=== PATIENT | female | born 1945 | race Caucasian/White ===

== ENCOUNTER 2016-12-01 09:51 | Inpatient (IN) | payer OTHER ==
[~2016-12-01] VITALS: Ht 172.7 cm; Wt 71.7 kg
[~2016-12-01 09:51] MED LIST: BACL10TA PO; CIPR-260 PO; DOCU-144 PO; DULO60CA41 PO; Elmiron PO; IBUP-1969 PO; LEVO500T20 PO; MORP30CA17 PO; PHEN-727 PO; SACC250C3 PO
[2016-12-01 09:59] VITALS: BP 156/108; PULSE 97; RESP 19; TEMP 97.5; O2SAT 88
--- NOTE | 2016-12-01 10:04 | NUR ---
Placed in room 03. Placed on environmental monitoring specialist, blood pressure machine and pulse oximeter. To gown for exam. Side rails up. Report given to JORGE Triplett.
--- NOTE | 2016-12-01 10:04 | NUR ---
Pt report received from JORGE Gautam. Pt AAOx4, even and non-labored respirations, BBS clear. Pt c/o generalized lower abdominal pain with nausea since yesterday. Pt appears jaundiced. Pt denies hx of liver problems. Family members at bedside.
--- NOTE | 2016-12-01 10:25 | NUR ---
# 20 gauge angiocath placed to RAC. Use of asceptic technique. Opsite placed over site. Blood return noted. Blood for lab drawn from site. Flushed with 10 cc of normal saline. No evidence of infiltration noted. Patient tolerated well.
[2016-12-01] MEDS ORDERED: PIPERACILLIN/TAZO 3.38 GM in NS 50 ML IV ONE (10:45)
[2016-12-01 11:00] LABS: BASOPHILS % (AUTO) 0.3 % (0.0-2.0); EOSINOPHILS % (AUTO) 0.1 % (0.0-4.0); HEMATOCRIT 32.8 % (36-48); HEMOGLOBIN 11.2 g/dL (12.0-16.0); LYMPHOCYTES # (AUTO) 0.9 K/uL (1.0-5.5); LYMPHOCYTES % (AUTO) 9.9 % (20.5-51.5); MEAN CORPUSCULAR HEMOGLOBIN 30 pg (27-31); MEAN CORPUSCULAR HGB CONC 34 % (32-36); MEAN CORPUSCULAR VOLUME 88 fL (79.0-98.0); MONOCYTES # (AUTO) 0.6 K/uL (0.0-1.0); MONOCYTES % (AUTO) 7.4 % (1.7-9.3); NEUTROPHILS # (AUTO) 7.2 K/uL (1.8-7.7); NEUTROPHILS % (AUTO) 82.3 % (40.0-70.0); PLATELET COUNT (AUTO) 283 K/uL (130-430); RED BLOOD CELL COUNT(AUTO) 3.75 MIL/uL (4.2-6.2); RED CELL DISTRIBUTION WIDTH 15.6 % (9.0-15.0); WHITE BLOOD COUNT (AUTO) 8.7 K/uL (4.8-10.8)
[2016-12-01 11:05] LABS: ANION GAP 12 (5-15); CALCIUM 9.2 mg/dL (8.4-11.0); CHLORIDE 95 mmol/L (98-107); CREATININE 4.55 mg/dL (0.55-1.30); GLUCOSE 144 mg/dL (70-99); POTASSIUM 3.3 mmol/L (3.5-5.1); SODIUM SERUM 130 mmol/L (136-145); UREA NITROGEN, BLOOD 30 mg/dL (8-21)
[2016-12-01 11:08] LABS: PROTHROMBIN TIME 10.9 SECS (9.5-12.5)
[2016-12-01 11:09] LABS: ALANINE AMINOTRANSFERASE 35 U/L (12-78); ALBUMIN 4.6 g/dL (3.4-4.8); ASPARTATE AMINOTRANSFERASE 35 U/L (10-37); LIPASE 184 U/L (73-393); TOTAL BILIRUBIN 2.4 mg/dL (0.0-1.0); TOTAL PROTEIN, SERUM 8.2 g/dL (6.4-8.3)
[2016-12-01] MEDS ORDERED: PIPERACILLIN/TAZOBACTAM 3.375 GM/VIAL (ZOSYN) IV ONE (11:36)
[2016-12-01] MEDS ORDERED: POTASSIUM CHLORIDE 20 MEQ TAB.PRT.SR PO ONE (12:15)
--- NOTE | 2016-12-01 12:45 | NUR ---
Pt requests pain medication. Dr. Curran notified.
[2016-12-01 12:53] LABS: BILIRUBIN,URINE 2+ (NEGATIVE); CLARITY/URINE CLEAR (CLEAR); COLOR,URINE BROWN (YELLOW); GLUCOSE,URINE 1+ (NEGATIVE); KETONES,URINE 1+ (NEGATIVE); LEUKOCYTE ESTERASE ,URINE 1+ (NEGATIVE); NITRITE, URINE POSITIVE (NEGATIVE); PROTEIN URINE 3+ (NEGATIVE)
[2016-12-01 12:58] LABS: BLOOD, URINE TRACE (NEGATIVE); UROBILINOGEN,URINE >=8 (0.2-1.0)
[2016-12-01] MEDS ORDERED: IBUPROFEN 600 MG TABLET PO ONE (13:00)
[2016-12-01] MEDS ORDERED: PHENAZOPYRIDINE HCL 100 MG TABLET PO ONE (13:00)
[2016-12-01] MEDS ORDERED: AMOXICILLIN/CLAVULANATE POTASSIUM 875 MG TABLET PO ONE (13:15)
[2016-12-01 13:24] LABS: BACTERIA,URINE FEW /HPF (None Seen); MUCUS,URINE None Seen /LPF (None Seen); RBC,URINE 0-3 /HPF (0-3); WBC,URINE 0-3 /HPF (0-3)
--- NOTE | 2016-12-01 14:00 | NUR ---
Patient will be admitted to care of Dr. Fishman. Admitted to Med/Surg unit. Will go to room 101A. Belongings list completed. Summary report printed. Bedside report given to receiving RN.
--- NOTE | 2016-12-01 14:05 | NUR ---
ADMISSION NOTE Received patient from ER via marquita, received report from ANDREW PATEL. Patient admitted with diagnosis of ACUTE RENAL FAilure. Patient oriented to hospital routine, call light, toileting and safety-patient verbalized understanding.
[2016-12-01 14:20] VITALS: BP 148/91; PULSE 79; RESP 18; TEMP 97.8; O2SAT 90
[2016-12-01] MEDS ORDERED: BUPR-120 PO (14:29)
[2016-12-01] MEDS ORDERED: PHEN-726 PO (14:29)
[2016-12-01] MEDS ORDERED: CYM30 PO (14:29)
[2016-12-01] MEDS ORDERED: PREG75CA PO (14:29)
[2016-12-01] MEDS: NACL 0.9% 1,000 ML IV SCH (14:45)
[2016-12-01] MEDS ORDERED: MAGNESIUM SULFATE 50 ML IV PRN (15:15)
[2016-12-01] MEDS ORDERED: ZOLPIDEM TARTRATE 5 MG TABLET PO PRN (15:15)
[2016-12-01] MEDS ORDERED: BACLOFEN 10 MG TABLET PO PRN (15:15)
[2016-12-01] MEDS ORDERED: LORazepam 2 MG/ML VIAL IVP PRN (15:15)
[2016-12-01] MEDS ORDERED: ACETAMINOPHEN 325 MG TABLET PO PRN (15:15)
[2016-12-01] MEDS ORDERED: POTASSIUM CHLORIDE 10 MEQ TAB.PRT.SR PO PRN (15:15)
[2016-12-01] MEDS ORDERED: DOCUSATE SODIUM 100 MG CAPSULE PO PRN (15:15)
[2016-12-01] MEDS: cefTRIAXone 1 GM in D5W 50 ML IV SCH (15:56)
[2016-12-01] MEDS: MORPHINE 2 MG/ML INJ. SYRINGE IVP PRN ×2 (15:56→22:21)
--- NOTE | 2016-12-01 15:56 | NUR ---
PT COMPLAINED OF BLADDER PAIN, ADMINISTERED PRN PAIN MEDICATION, PT STATES IT IS EFFECTIVE UPON REASSESSMENT
[2016-12-01] MEDS: ONDANSETRON HCL 4 MG/2 ML VIAL IVP PRN (17:04)
--- NOTE | 2016-12-01 17:13 | NUR ---
PATIENT COMPLAINED OF NAUSEA, ADMINISTERED PRN ZOFRAN. PT TOLERATED WELL, WILL REASSESS.
--- NOTE | 2016-12-01 19:00 | NUR ---
closing note pt laying in bed,resting, easy to arouse, no s/s of distress or complaint of pain at this time, iv fliuds infusing to rac, patent no s/sof infiltration noted, vss, needs attended to through out shift, safety measures in place, call light within reach, will give report to following shift
[2016-12-01 20:00] VITALS: BP 140/77; PULSE 77; RESP 18; TEMP 97.1; O2SAT 88
--- NOTE | 2016-12-01 20:02 | NUR ---
BEGINNING OF FRONT END ENGINEER NOTE Patient in bed resting. She complains of some bladder pain and asked the nurse to check if the pain med is due. No other distress noted, no respiratory problems. Patient alert, oriented X4, on IVF and room air. Report received from the day shift RN.
[2016-12-01] MEDS ORDERED: DOCUSATE SODIUM 100 MG CAPSULE PO SCH (21:00)
[2016-12-01] MEDS: buPROPion HCL 150 MG XL TAB PO SCH (21:30)
[2016-12-01] MEDS: HEPARIN SODIUM,PORCINE 5000 UNITS/ML VIAL SUBCUT SCH (21:31)
--- NOTE | 2016-12-01 22:10 | NUR ---
2210 NOTE Patient in bed resting. She stated she is in pain 8/10 and she would like pain medication. The nurse provided the pain medication Morphine 2 mg IV push. Patient on IVF NS 0.9 % at 80cc/hr. Patient alert & oriented X4. No S/S of any other distress noted. Fall precautions in place, call light within reach. The nurse provided a warm blanket on patient's request.
[2016-12-01 23:31] VITALS: BP 129/81; PULSE 80; RESP 18; TEMP 97.4; O2SAT 93
--- NOTE | 2016-12-02 00:40 | NUR ---
0040 NOTE Patient in bed sleeping. No S/S of pain or any other distress noted. Call light within reach, bed in low position.
--- NOTE | 2016-12-02 01:00 | NUR ---
Assumed care Recvd pt in bed a/a/ox4.No c/o pain and no sob noted @ this time.Pt is ambulatory with supervision.Call light within reach,will cont to monitor.
--- NOTE | 2016-12-02 02:11 | NUR ---
0211 NOTE PAtient in bed sleeping, No S/S of pain or any distress noted. Bed in low position, call light within reach. Per management, there will be a change in staff and nurse is sent home. The nurse gave report to the replacing RN Mook.
[2016-12-02] MEDS: NACL 0.9% 1,000 ML IV SCH ×2 (02:33→14:58)
[2016-12-02] MEDS: MORPHINE 2 MG/ML INJ. SYRINGE IVP PRN (03:21)
--- NOTE | 2016-12-02 03:30 | NUR ---
ADMIN MORPHINE FOR 8/10 ABD PAIN. ADMIN MORPHINE FOR 8/10 ABD PAIN. WILL REASSESS AFTER 1 HOUR
[2016-12-02 03:55] VITALS: BP 142/90; PULSE 75; RESP 16; TEMP 97.4; O2SAT 91
--- NOTE | 2016-12-02 05:30 | NUR ---
ROUNDS PT IS SLEEPING @ THIS TIME.NO S/S OF PAIN AND NO DISTRESS NOTED.CALL LIGHT WITHIN REACH,WILL CONT TO MONITOR
[2016-12-02 06:54] LABS: BASOPHILS % (AUTO) 0.3 % (0.0-2.0); EOSINOPHILS # (AUTO) 0.1 K/uL (0.0-0.4); EOSINOPHILS % (AUTO) 1.4 % (0.0-4.0); HEMATOCRIT 26.5 % (36-48); HEMOGLOBIN 8.9 g/dL (12.0-16.0); LYMPHOCYTES # (AUTO) 0.9 K/uL (1.0-5.5); LYMPHOCYTES % (AUTO) 16.6 % (20.5-51.5); MEAN CORPUSCULAR HEMOGLOBIN 30 pg (27-31); MEAN CORPUSCULAR HGB CONC 33 % (32-36); MEAN CORPUSCULAR VOLUME 89 fL (79.0-98.0); MONOCYTES # (AUTO) 0.5 K/uL (0.0-1.0); MONOCYTES % (AUTO) 8.6 % (1.7-9.3); NEUTROPHILS % (AUTO) 73.1 % (40.0-70.0); PLATELET COUNT (AUTO) 247 K/uL (130-430); RED BLOOD CELL COUNT(AUTO) 2.98 MIL/uL (4.2-6.2); RED CELL DISTRIBUTION WIDTH 15.6 % (9.0-15.0); WHITE BLOOD COUNT (AUTO) 5.5 K/uL (4.8-10.8)
--- NOTE | 2016-12-02 06:59 | NUR ---
FINAL NOTES PT IS SLEEPING @ THIS TIME.NO S/S OF PAIN AND NO SOB NOTED.V/S ARE WNL.ALL NEEDS MET AND ANTICIPATED BY NOC NURSES.CALL LIGHT WITHIN REACH,ENDORSED.
--- NOTE | 2016-12-02 07:05 | NUR ---
NRSG: PATIENT AWAKE,ALERT AND ORIENTED X 4. RESPIRATION EVEN AND UNLABORED. ABDOMEN SOFT WITH BOWEL SOUNDS X 4 QUADRANTS. ON ROOM AIR AND O2 SAT. 94%. HAD IV ON THE RIGHT ANTECUBITAL INTACT AND INPLACED ,NO S/S OF INFILTRATION AND IVF ON PROGRESS , NO C/O OF PAIN ANF AMBULATED TO TOILET ,GAIT STEADY AND CALL LIGHT WITHIN REACH. NO SKIN BREAKDOWN. INSTRUCTED TO CALL IF IN NEEDS AND UNDERSTOOD.
[2016-12-02 07:06] LABS: ANION GAP 10 (5-15); CALCIUM 8.3 mg/dL (8.4-11.0); CHLORIDE 100 mmol/L (98-107); GLUCOSE 144 mg/dL (70-99); POTASSIUM 3.8 mmol/L (3.5-5.1); SODIUM SERUM 132 mmol/L (136-145); UREA NITROGEN, BLOOD 40 mg/dL (8-21)
[2016-12-02 08:00] VITALS: BP 142/77; PULSE 79; RESP 18; TEMP 96.9; O2SAT 94
[2016-12-02] MEDS: DULoxetine HCL 30 MG CAPSULE.DR (CYMBALTA) PO SCH (08:47)
[2016-12-02] MEDS: PREGABALIN 75 MG CAPSULE (LYRICA) PO SCH (08:47)
[2016-12-02] MEDS: buPROPion HCL 150 MG XL TAB PO SCH ×2 (08:48→21:09)
[2016-12-02] MEDS: HEPARIN SODIUM,PORCINE 5000 UNITS/ML VIAL SUBCUT SCH ×2 (08:49→21:11)
--- NOTE | 2016-12-02 09:00 | NUR ---
ROUNDS: SEEN AND EXAMINED BY DR. MORGAN WITH NEW ORDER AND TOLD DR. MORGAN C/O"I HAVE PAIN ON MY BLADDER".
--- NOTE | 2016-12-02 09:21 | NUR ---
Consult Order received for a consult with Dr Mukherjee for ESRD. Call was placed to the exchange, spoke with Ambreen. Dr Francie Morelos is salesperson men[employer] furnishings. Will follow up as needed.
--- NOTE | 2016-12-02 09:39 | NUR ---
ORDER: DR. MCCULLOUGH CALLED BACK FOR CONSULT WITH NEW ORDERS.
[2016-12-02 10:04] VITALS: Ht 172.7 cm; Wt 71.7 kg
--- NOTE | 2016-12-02 10:18 | NUR ---
VISITOR: FAMILY AT THE BEDSIDE. PATIENT WAS INSTRUCTED TO SAVE THE URINE TO BE SENT TO LAB.AND UNDERSTOOD.
[2016-12-02 11:42] VITALS: BP 127/72; PULSE 88; RESP 19; TEMP 97.8; O2SAT 90
--- NOTE | 2016-12-02 12:17 | NUR ---
ROUNDS: SEEN AND EXAMINED BY DR. MCCULLOUGH WITH NEW ORDERS.
--- NOTE | 2016-12-02 13:15 | NUR ---
RN rounds: pt on bed alert, awake and oriented. no distress noted. Discussed plan of care. family at bedside.
--- NOTE | 2016-12-02 14:25 | NUR ---
SPECIMEN: URINE SPECIMEN SENT TO LAB FOR RANDOM NA AND CHLORIDE. THE COLOR OF URINE IS ORANGE DUE TO MEDICINE SHE TOOK YESTERDAY PER PATIENT.
--- NOTE | 2016-12-02 15:12 | NUR ---
REINFORCE TEACHING: REINFORCED TEACHING REGARDING STRICT I AND O AND VERBALIZED UNDERSTANDING.
--- NOTE | 2016-12-02 16:30 | NUR ---
AMBULATION: AMBULATED TO HALLWAY,ACCOMPANIED BY ,GAIT STEADY AND BACK TO BED AFTER AND CALL LIGHT WITHIN REACH.
[2016-12-02] MEDS: cefTRIAXone 1 GM in D5W 50 ML IV SCH (16:34)
--- NOTE | 2016-12-02 18:37 | NUR ---
CLOSING: RESTING ON BED,AWAKE,ALERT AND ORIENTED, ST THE BEDSIDE.REMAINS ON IVF AND IV SITE INTACT AND INPLACED .NO SIGN OF INFILTRATION AND REMINDED REGARDING STRICT I AND O. CALL LIGHT WITHIN REACH.
[2016-12-02 19:40] VITALS: BP 131/80; PULSE 82; RESP 18; TEMP 98.2; O2SAT 91
--- NOTE | 2016-12-02 19:40 | NUR ---
INITIAL NOTE Patient resting on the bed comfortable. Respiration even and unlabored noted. Skin warm and dry to touch. IV intact to RAC, no redness, no swelling, no drainage. On NS at 80ml/hr, infusing well. at bedside. Discussed the safety issue, use call light when need help. strict I and O, and plan of care, verbally understanding. Bed in low position, side rails up, bed alarm on. Will continue to monitor.
--- NOTE | 2016-12-02 21:45 | NUR ---
ROUND Patient resting on the bed with eyes closed. No acute distress. No SOB. Safety measure maintained. Call light within reached. Bed in low position, side rails up, bed alarm on. Continue to monitor.
[2016-12-02 22:10] LABS: CHLORIDE,URINE RANDOM 19 mmol/L (55-125); URINE SODIUM, RANDOM 23 mmol/L (40-220)
--- NOTE | 2016-12-02 23:34 | NUR ---
ROUND Patient resting on the bed with eyes closed. Respiration even and unlabored. Call light within reached. Safety measure maintained. Bed alarm on, side rails up,bed in low position. Continue to monitor.
[2016-12-03] VITALS (7 sets, daily range): BP systolic 120–151; BP diastolic 73–88; PULSE 78–85; RESP 16–20; TEMP 97.1–98.5; O2SAT 91–94
--- NOTE | 2016-12-03 01:45 | NUR ---
ROUND Patient sleeping comfortable. No acute distress. Safety measure maintained. Call light within reached. Bed in low position, bed alarm on, side rails up. Continue to monitor.
--- NOTE | 2016-12-03 03:23 | NUR ---
ROUND Patient sleeping comfortable. Respiration even and unlabored. No acute distress. Safety measure maintained. Bed in low position, bed alarm on, side rails up. Call light within reached. Continue to monitor.
[2016-12-03] MEDS: NACL 0.9% 1,000 ML IV SCH ×2 (04:07→16:45)
[2016-12-03] MEDS: MORPHINE 2 MG/ML INJ. SYRINGE IVP PRN ×4 (04:13→20:34)
--- NOTE | 2016-12-03 04:13 | NUR ---
MORPHINE GIVEN Patient c/o lower abdomen pain 6/10 after assisted to ambulate to bathroom and brushed the teeth. Morphine 2mg IVP given as ordered. No acute distress. Safety measure maintained. Call light within reached. Education the possible side effect and use call light to call for help, verbally understanding. Continue to monitor.
--- NOTE | 2016-12-03 05:09 | NUR ---
ROUND Patient resting on the bed with eyes closed. No acute distress. No c/o pain at this time. Safety measure maintained. Bed alarm on, bed in low position, side rails up. Call light within reached. Continue to monitor.
--- NOTE | 2016-12-03 06:40 | NUR ---
CLOSING NOTE Patient resting on the bed comfortable. Respiration even and unlabored noted. IV intact to RAC, no redness, no swelling, no drainage. IVF infusing well. Assisted to ambulate to bathroom during shift. VS stable. All needs met. Hourly rounding during shift. Safety measure maintained. Bed in low position, side rails up, bed alarm on. Will endorse to morning shift nurse.
[2016-12-03 06:47] LABS: BASOPHILS % (AUTO) 0.3 % (0.0-2.0); EOSINOPHILS # (AUTO) 0.2 K/uL (0.0-0.4); EOSINOPHILS % (AUTO) 3.2 % (0.0-4.0); HEMATOCRIT 22.9 % (36-48); HEMOGLOBIN 7.5 g/dL (12.0-16.0); LYMPHOCYTES # (AUTO) 0.9 K/uL (1.0-5.5); LYMPHOCYTES % (AUTO) 16.9 % (20.5-51.5); MEAN CORPUSCULAR HEMOGLOBIN 30 pg (27-31); MEAN CORPUSCULAR HGB CONC 33 % (32-36); MEAN CORPUSCULAR VOLUME 90 fL (79.0-98.0); MONOCYTES # (AUTO) 0.5 K/uL (0.0-1.0); MONOCYTES % (AUTO) 10.7 % (1.7-9.3); NEUTROPHILS # (AUTO) 3.5 K/uL (1.8-7.7); NEUTROPHILS % (AUTO) 68.9 % (40.0-70.0); PLATELET COUNT (AUTO) 238 K/uL (130-430); RED BLOOD CELL COUNT(AUTO) 2.55 MIL/uL (4.2-6.2); RED CELL DISTRIBUTION WIDTH 17.1 % (9.0-15.0); WHITE BLOOD COUNT (AUTO) 5.1 K/uL (4.8-10.8)
[2016-12-03 07:09] LABS: ANION GAP 7 (5-15); CALCIUM 8.1 mg/dL (8.4-11.0); CHLORIDE 102 mmol/L (98-107); CREATINE KINASE, TOTAL 34 U/L (26-192); CREATININE 5.92 mg/dL (0.55-1.30); GLUCOSE 117 mg/dL (70-99); POTASSIUM 4.4 mmol/L (3.5-5.1); SODIUM SERUM 132 mmol/L (136-145); UREA NITROGEN, BLOOD 51 mg/dL (8-21); URIC ACID 4.9 mg/dL (2.4-7.0)
[2016-12-03 07:35] LABS: IRON (SERUM) 104 mcg/dL (37-145); TOTAL IRON BIND. CAPACITY 205 ug/dL (250-450)
--- NOTE | 2016-12-03 08:10 | NUR ---
INITIAL NOTES RECEIVED PATIENT ON BED AWAKE.BREATHING EVEN AND UNLABORED.NO ACUTE DISTRESS.WITH IVF INFUSING WELL;NO SIGNS AND SYMPTOMS OF INFILTRATION.SAFETY AND FALL PRECAUTIONS IN PLACE.CALL LIGHT WITHIN REACH
--- NOTE | 2016-12-03 08:30 | NUR ---
NOTES CHECKED PULSE OX=91-92% IN ROOM AIR;REFUSED OXYGEN STATED "I DON'T HAVE PROBLEM BREATHING.MY OXYGEN HAS ALWAYS BEEN LOW".EXPLAINED RISKS AND BENEFITS;STILL REFUSED
[2016-12-03] MEDS: DULoxetine HCL 30 MG CAPSULE.DR (CYMBALTA) PO SCH (08:46)
[2016-12-03] MEDS: buPROPion HCL 150 MG XL TAB PO SCH ×2 (08:46→21:24)
[2016-12-03] MEDS: HEPARIN SODIUM,PORCINE 5000 UNITS/ML VIAL SUBCUT SCH ×2 (08:48→21:27)
[2016-12-03] MEDS: PREGABALIN 75 MG CAPSULE (LYRICA) PO SCH (08:49)
--- NOTE | 2016-12-03 09:04 | NUR ---
NOTES DR. MORGAN CAME AND EXAMINED THE PATIENT;INFORMED REGARDING PATIENT'S HG=7.5 AND PATIENT'S REQUEST FOR MIRALAX BECAUSE IT IS WHAT SHE'S TAKING AT HOME SAID WILL ORDER;CARRIED OUT
[2016-12-03] MEDS ORDERED: BISACODYL 5 MG TABLET.DR (DULCOLAX) PO ONE (09:15)
--- NOTE | 2016-12-03 11:50 | NUR ---
NOTES PAGED DR. MORGAN REGARDING PATIENT'S COMPLAIN OF UPSET STOMACH;AWAITING FOR CALL BACK
--- NOTE | 2016-12-03 13:29 | NUR ---
NOTES CHARGE NURSE SPOKE WITH DR. MORGAN;WITH ORDER FOR REGLAN;CARRIED OUT
[2016-12-03] MEDS: METOCLOPRAMIDE HCL 10 MG/2 ML VIAL IVP PRN ×2 (14:15→20:38)
--- NOTE | 2016-12-03 16:00 | NUR ---
NOTES PATIENT ON BED ASLEEP WITH AT BEDSIDE.NO ACUTE DISTRESS
[2016-12-03] MEDS: cefTRIAXone 1 GM in D5W 50 ML IV SCH (16:46)
--- NOTE | 2016-12-03 17:40 | NUR ---
NOTES SPOKE WITH DR. MORGAN;INFORMED REGARDING PATIENT'S REQUEST TO CHANGE HER IV ANTIBIOTIC TO MACROBID BECAUSE ACCORDING TO PATIENT ITS WHAT WORKS FOR HER SAID HE CHANGED THE IV ANTIBIOTIC TO ORAL THEN HE WILL HAVE TO DISCHARGE HER AND THAT HE WILL TALK TO PATIENT TOMORROW.WILL INFORM PATIENT
--- NOTE | 2016-12-03 18:37 | NUR ---
CLOSING NOTES PATIENT ON BED AWAKE WATCHING T.V.BREATHING EVEN AND UNLABORED.NO ACUTE DISTRESS.IVF INFUSING WELL;NO SIGNS AND SYMPTOMS OF INFILTRATION.SAFETY AND FALL PRECAUTIONS IN PLACE.CALL LIGHT WITHIN REACH.WILL ENDORSE TO NEXT SHIFT ACCORDINGLY
--- NOTE | 2016-12-03 19:43 | NUR ---
notes received the pt from the day nurse.pt a/a/ox4 family at the bedside.iv to rt ac intact ,no redness or swelling noted.call light within reach ,safety measures in progress.continue to monitor.
--- NOTE | 2016-12-03 20:05 | NUR ---
notes dr crook here making rounds.
--- NOTE | 2016-12-03 20:30 | NUR ---
notes urine spec.sent to the lab.
--- NOTE | 2016-12-03 20:35 | NUR ---
notes c/o abdominal pain RN was notified.
--- NOTE | 2016-12-03 23:27 | NUR ---
notes pt sleeping,call light within reach,continue to monitor
[2016-12-04 00:09] VITALS: BP 138/82; PULSE 76; RESP 17; TEMP 98.6; O2SAT 95
--- NOTE | 2016-12-04 01:20 | NUR ---
notes pt remains asleep,call light within reach,continue to monitor.
--- NOTE | 2016-12-04 03:24 | NUR ---
notes nurse companion at the bedside getting vs,pt with no complaints.call light within reach.continue to monitor.
[2016-12-04 04:01] VITALS: BP 111/62; PULSE 74; RESP 16; TEMP 98.3; O2SAT 98
--- NOTE | 2016-12-04 05:27 | NUR ---
notes pt awake and alert ,watching tv with no complaints.
[2016-12-04] MEDS: NACL 0.9% 1,000 ML IV SCH ×2 (05:44→18:10)
[2016-12-04] MEDS: LEVOTHYROXINE SODIUM 0.075 MG TABLET PO SCH (06:03)
--- NOTE | 2016-12-04 06:09 | NUR ---
closing notes pt awake Synthroid given as ordered.pt returning to sleep.will endorse the care of the pt to the day nurse.
[2016-12-04 06:55] LABS: ANION GAP 7 (5-15); CALCIUM 8.3 mg/dL (8.4-11.0); CHLORIDE 103 mmol/L (98-107); CREATININE 5.81 mg/dL (0.55-1.30); GLUCOSE 109 mg/dL (70-99); POTASSIUM 4.1 mmol/L (3.5-5.1); SODIUM SERUM 132 mmol/L (136-145); UREA NITROGEN, BLOOD 54 mg/dL (8-21)
[2016-12-04 07:33] LABS: BASOPHILS % (AUTO) 0.5 % (0.0-2.0); EOSINOPHILS # (AUTO) 0.2 K/uL (0.0-0.4); EOSINOPHILS % (AUTO) 4.5 % (0.0-4.0); LYMPHOCYTES # (AUTO) 1.2 K/uL (1.0-5.5); LYMPHOCYTES % (AUTO) 22.5 % (20.5-51.5); MEAN CORPUSCULAR HEMOGLOBIN 30 pg (27-31); MEAN CORPUSCULAR HGB CONC 33 % (32-36); MEAN CORPUSCULAR VOLUME 90 fL (79.0-98.0); MONOCYTES # (AUTO) 0.5 K/uL (0.0-1.0); MONOCYTES % (AUTO) 9.1 % (1.7-9.3); NEUTROPHILS # (AUTO) 3.6 K/uL (1.8-7.7); NEUTROPHILS % (AUTO) 63.4 % (40.0-70.0); PLATELET COUNT (AUTO) 277 K/uL (130-430); RED BLOOD CELL COUNT(AUTO) 2.55 MIL/uL (4.2-6.2); RED CELL DISTRIBUTION WIDTH 17.2 % (9.0-15.0); WHITE BLOOD COUNT (AUTO) 5.5 K/uL (4.8-10.8)
[2016-12-04 07:34] LABS: HEMOGLOBIN 7.6 g/dL (12.0-16.0)
[2016-12-04 08:00] VITALS: BP 157/89; PULSE 89; RESP 18; TEMP 97; O2SAT 92
[2016-12-04] MEDS: PREGABALIN 75 MG CAPSULE (LYRICA) PO SCH (09:06)
[2016-12-04] MEDS: DULoxetine HCL 30 MG CAPSULE.DR (CYMBALTA) PO SCH (09:06)
[2016-12-04] MEDS: POLYETHYLENE GLYCOL 3350, 17 GM/ POWD.PACK PO SCH (09:06)
[2016-12-04] MEDS: buPROPion HCL 150 MG XL TAB PO SCH ×2 (09:06→20:46)
[2016-12-04] MEDS: HEPARIN SODIUM,PORCINE 5000 UNITS/ML VIAL SUBCUT SCH ×2 (09:13→20:49)
--- NOTE | 2016-12-04 09:19 | NUR ---
initial notes rec patient awake alert ambulating to the br. ivf infusing well on the r ac. no infiltration noted. denies pain at this time. bed in low position and side rails up and locked. call light within reached and knows when to call for assistance. will continue to monitor patient.
--- NOTE | 2016-12-04 09:24 | NUR ---
rounds dr henry was made aware of the h/h.
[2016-12-04] MEDS ORDERED: BISACODYL 5 MG TABLET.DR (DULCOLAX) PO ONE (09:30)
--- NOTE | 2016-12-04 10:06 | NUR ---
CONSULTATION: REASON FOR CONSULT: POSS GI BLEED CONSULTING PHYSICIAN: HALEY MCNALLY MD ORDERED BY: GAMALIEL MORGAN DO SPOKE WITH DEXTER
--- NOTE | 2016-12-04 10:30 | NUR ---
spoke with dr palacios and updated re patient and stated will be here later to see patient.
[2016-12-04 12:00] VITALS: BP 141/91; PULSE 76; RESP 16; TEMP 98.4; O2SAT 91
--- NOTE | 2016-12-04 12:20 | NUR ---
rounds endorsed care of the patient to kole reyes. no acute distress noted. at bedside.
--- NOTE | 2016-12-04 12:30 | NUR ---
Pt received received patient from amy ly. patient is resting comfortably in bed. no s/s of distress or sob. patient is alert and oriented. call light in reach, bed in lowest position, and will continue to monitor.
[2016-12-04] MEDS: MORPHINE 2 MG/ML INJ. SYRINGE IVP PRN ×2 (13:00→22:58)
--- NOTE | 2016-12-04 14:30 | NUR ---
NOTE: PATIENT IS RESTING COMFORTABLY IN BED. NO S/S OF DISTRESS OR SOB. PATIENT IS ALERT AND ORIENTED, ABLE TO EXPRESS NEEDS AND ASK FOR ASSISTANCE. CALL LIGHT IN REACH, BED IN LOWEST POSITION, AND WILL CONTINUE TO MONITOR.
[2016-12-04 16:00] VITALS: BP 151/87; PULSE 82; RESP 16; TEMP 98; O2SAT 95
[2016-12-04] MEDS ORDERED: MAGNESIUM CITRATE 300 ML ORAL SOLUTION PO ONE (16:15)
[2016-12-04] MEDS ORDERED: PHENAZOPYRIDINE HCL 100 MG TABLET PO ONE (16:15)
[2016-12-04] MEDS: cefTRIAXone 1 GM in D5W 50 ML IV SCH (16:25)
--- NOTE | 2016-12-04 16:30 | NUR ---
NOTE: PATIENT IS RESTING COMFORTABLY IN BED. NO S/S OF DISTRESS OR SOB. PATIENT IS ALERT AND ORIENTED, ABLE TO EXPRESS NEEDS, AND ASK FOR ASSISTANCE. CALL LIGHT IN REACH, BED IN LOWEST POSITION, AND WILL CONTINUE TO MONITOR.
[2016-12-04 16:45] LABS: ANION GAP 7 (5-15); CALCIUM 8.4 mg/dL (8.4-11.0); CHLORIDE 104 mmol/L (98-107); CREATININE 5.66 mg/dL (0.55-1.30); GLUCOSE 113 mg/dL (70-99); SODIUM SERUM 134 mmol/L (136-145); UREA NITROGEN, BLOOD 60 mg/dL (8-21)
--- NOTE | 2016-12-04 18:22 | NUR ---
CLOSING NOTE: PATIENT IS RESTING COMFORTABLY IN BED. NO S/S OF DISTRESS OR SOB. PATIENT IS ALERT AND ORIENTED, ABLE TO EXPRESS NEEDS, AND ASK FOR ASSISTANCE. PATIENT STILL HAS NOT BEEN ABLE TO HAVE A BOWEL MOVEMENT. CALL LIGHT IN REACH, BED IN LOWEST POSITION, AND WILL GIVE REPORT TO NIGHT NURSE.
[2016-12-04] MEDS ORDERED: MINERAL OIL 30 ML UDC PO ONE (19:30)
--- NOTE | 2016-12-04 20:02 | NUR ---
Opening Note Report received from Nicole PATEL. Patient is currently in stable condition. No signs of distress noted. IV on the RAC running NS@80ml/hr. Currently is on strict I&O's. Call light is within reach. Instructed to use call light whenever in need of assistance.
[2016-12-04 20:05] VITALS: BP 132/74; PULSE 80; RESP 16; TEMP 98.4; O2SAT 93
[2016-12-04] MEDS: PHENAZOPYRIDINE HCL 100 MG TABLET PO SCH (20:46)
--- NOTE | 2016-12-04 22:10 | NUR ---
Rounds Patient is currently resting in bed. Call light is within reach.
[2016-12-05] VITALS (7 sets, daily range): BP systolic 122–159; BP diastolic 68–89; PULSE 72–97; RESP 12–19; TEMP 96.4–98.2; O2SAT 91–99
--- NOTE | 2016-12-05 00:05 | NUR ---
Rounds Patient is resting in bed. No signs of distress noted. Call light is within reach.
[2016-12-05] MEDS: MINERAL OIL 30 ML UDC PO SCH ×5 (00:50→23:25)
--- NOTE | 2016-12-05 02:15 | NUR ---
Rounds patient is sleeping in bed. Call light is within reach.
--- NOTE | 2016-12-05 04:15 | NUR ---
Rounds Patient is sleeping in bed. Call light is within reach.
[2016-12-05] MEDS: LEVOTHYROXINE SODIUM 0.075 MG TABLET PO SCH (06:20)
[2016-12-05] MEDS: NACL 0.9% 1,000 ML IV SCH ×2 (06:26→20:58)
--- NOTE | 2016-12-05 06:48 | NUR ---
Closing Note Patient is currently resting in bed. All medication giving. No complaints at the moment. Will give report to the oncoming shift.
[2016-12-05 07:25] LABS: EOSINOPHILS # (AUTO) 0.2 K/uL (0.0-0.4); MONOCYTES # (AUTO) 0.5 K/uL (0.0-1.0)
[2016-12-05 07:29] LABS: BASOPHILS % (AUTO) 0.1 % (0.0-2.0); EOSINOPHILS % (AUTO) 3.6 % (0.0-4.0); LYMPHOCYTES % (AUTO) 21.5 % (20.5-51.5); MEAN CORPUSCULAR HEMOGLOBIN 30 pg (27-31); MEAN CORPUSCULAR HGB CONC 33 % (32-36); MEAN CORPUSCULAR VOLUME 91 fL (79.0-98.0); MONOCYTES % (AUTO) 9.3 % (1.7-9.3); NEUTROPHILS # (AUTO) 3.2 K/uL (1.8-7.7); NEUTROPHILS % (AUTO) 65.5 % (40.0-70.0); PLATELET COUNT (AUTO) 267 K/uL (130-430); RED BLOOD CELL COUNT(AUTO) 2.25 MIL/uL (4.2-6.2); RED CELL DISTRIBUTION WIDTH 17.3 % (9.0-15.0); WHITE BLOOD COUNT (AUTO) 4.9 K/uL (4.8-10.8)
--- NOTE | 2016-12-05 07:30 | NUR ---
Rounds to patient. Awake and alert during handoff report.
[2016-12-05 07:32] LABS: HEMATOCRIT 20.5 % (36-48); HEMOGLOBIN 6.8 g/dL (12.0-16.0)
[2016-12-05 07:35] LABS: ANION GAP 7 (5-15); CALCIUM 8.5 mg/dL (8.4-11.0); CHLORIDE 106 mmol/L (98-107); CREATININE 4.96 mg/dL (0.55-1.30); GLUCOSE 102 mg/dL (70-99); POTASSIUM 4.2 mmol/L (3.5-5.1); SODIUM SERUM 136 mmol/L (136-145); UREA NITROGEN, BLOOD 53 mg/dL (8-21)
[2016-12-05] MEDS: HEPARIN SODIUM,PORCINE 5000 UNITS/ML VIAL SUBCUT SCH (08:08)
[2016-12-05] MEDS: POLYETHYLENE GLYCOL 3350, 17 GM/ POWD.PACK PO SCH (08:08)
[2016-12-05] MEDS: DULoxetine HCL 30 MG CAPSULE.DR (CYMBALTA) PO SCH ×2 (08:08→09:00)
[2016-12-05] MEDS: PREGABALIN 75 MG CAPSULE (LYRICA) PO SCH (08:08)
[2016-12-05] MEDS: buPROPion HCL 150 MG XL TAB PO SCH ×2 (08:08→20:57)
[2016-12-05] MEDS: PHENAZOPYRIDINE HCL 100 MG TABLET PO SCH ×2 (08:09→20:58)
--- NOTE | 2016-12-05 09:30 | NUR ---
Rounds to patient for medication. Refused duloxetine at this time. Says she does not need medication.
--- NOTE | 2016-12-05 11:30 | NUR ---
Rounds to patient. Needs met at this time. rounds from Doctor Fishman. Paperwork for blood transfusion taken to lab.
--- NOTE | 2016-12-05 13:30 | NUR ---
Notified patient and family lyric writer awaiting blood transfusion and clearance from bumper and painter, Doctor Lao, on proceding with egd and colonoscopy as he needed to first talk with government affairs director Doctor Lonny about patient kidney function.
[2016-12-05] MEDS: MORPHINE 2 MG/ML INJ. SYRINGE IVP PRN ×2 (14:38→23:29)
--- NOTE | 2016-12-05 15:38 | NUR ---
Rounds to patient. Side lying. Says pain is decreased after morphine dose.
[2016-12-05] MEDS: cefTRIAXone 1 GM in D5W 50 ML IV SCH (15:48)
--- NOTE | 2016-12-05 18:17 | NUR ---
Handoff report prepared. Patient notified of pending type and cross. Notified blood to be transfused this pm.
--- NOTE | 2016-12-05 20:00 | NUR ---
PM Shift Assessment Received patient lying in bed, AAO x4, no acute distress noted. Assessment complete, vital signs stable, no complain of pain at this time. IV noted to right AC, IV fluids infusing well, no redness or swelling noted to IV site. Patient noted with steady gait up to restroom and safely back to bed. Plan of care discussed with patient and updated on board, she verbalized understanding. Patient is verbally able to make needs known and encouraged to do so. Call light is within reach, all fall and safety precautions in place, will continue to monitor for change in patient status.
--- NOTE | 2016-12-05 20:40 | NUR ---
BT INITIATION: Consent signed per patient agreeing to administration of blood. Blood has been type and crossmatched. Blood sent from blood bank. Information on unit of blood checked against patient wristband at bedside by two nurses. All information matches. Patient or responsible libertarian informed of potential complications associated with blood transfusion. Informed of possible transfusion reaction symptoms. Aware of need to notify nurse at once of itching, shortness of breath, flushing, feeling of impending doom, or other symptoms not previously present. Vital signs taken within 5 minutes prior to initiation of transfusion, T: 98.1, HR: 82, BP 149/81. RN will remain with patient for first 15 minutes of transfusion at which time vital signs will be re-assessed.
--- NOTE | 2016-12-05 22:14 | NUR ---
RN Rounds Patient is resting quietly in bed, no acute distress noted. Scheduled medications were administered as ordered per MD. Blood transfusion is infusing well, no sings or symptoms of adverse reaction noted at this time. Warm tea given to patient per her request. Encouraged to call for assistance as needed, she verbalized understanding. Call light is within reach, all fall and safety precautions in place, will continue to monitor.
--- NOTE | 2016-12-05 23:08 | NUR ---
BT INITIATION: 2nd unit of blood ready for transfusion. Consent signed per patient agreeing to administration of blood. Blood has been type and crossmatched. Blood sent from blood bank. Information on unit of blood checked against patient wristband at bedside by two nurses. All information matches. Patient or responsible republican informed of potential complications associated with blood transfusion. Informed of possible transfusion reaction symptoms. Aware of need to notify nurse at once of itching, shortness of breath, flushing, feeling of impending doom, or other symptoms not previously present. Vital signs taken within 5 minutes prior to initiation of transfusion, T: 98.1, HR: 80, BP 149/76. RN will remain with patient for first 15 minutes of transfusion at which time vital signs will be re-assessed.
[2016-12-06] VITALS (7 sets, daily range): BP systolic 146–183; BP diastolic 81–98; PULSE 72–80; RESP 16–19; TEMP 97.9–98.6; O2SAT 92–96
--- NOTE | 2016-12-06 01:28 | NUR ---
RN Rounds Patient is resting quietly in bed, no acute distress noted. Blood transfusion continues to infuse well, no signs/symptoms of adverse reaction noted at this time. Call light is within reach, all fall and safety precautions in place, will continue to monitor.
--- NOTE | 2016-12-06 03:31 | NUR ---
RN Rounds Patient is sleeping, respirations are even and unlabored, no acute distress noted. Blood transfusion completed earlier with no signs/symptoms of transfusion reaction. IV fluids infusing well. Call light is within reach, all fall and safety precautions in place, will continue to monitor.
--- NOTE | 2016-12-06 05:27 | NUR ---
RN Rounds Patient is resting quietly in bed, complains of pain to bladder. PRN pain medication to be administered per MD order and will reassess for relief of pain. Patient noted up to restroom and safely back to bed. Call light is within reach, all fall and safety precautions in place, will continue to monitor.
[2016-12-06] MEDS: NACL 0.9% 1,000 ML IV SCH ×2 (05:31→23:39)
[2016-12-06] MEDS: MINERAL OIL 30 ML UDC PO SCH ×5 (05:31→23:38)
[2016-12-06] MEDS: MORPHINE 2 MG/ML INJ. SYRINGE IVP PRN ×3 (05:31→23:40)
[2016-12-06] MEDS: LEVOTHYROXINE SODIUM 0.075 MG TABLET PO SCH (06:06)
--- NOTE | 2016-12-06 06:55 | NUR ---
Closing Notes Patient is resting quietly in bed, no acute distress noted, is at the bedside. Patient noted ambulating with steady gait around nurses station and safely back to bed. Patient is stable, all needs met throughout shift. Will continue to monitor until endorsed to AM nurse at bedside.
--- NOTE | 2016-12-06 07:40 | NUR ---
INITIAL NOTES RECEIVED PATIENT ON BED AWAKE.BREATHING EVEN AND UNLABORED.NO ACUTE DISTRESS.IVF INFUSING WELL;NO SIGNS AND SYMPTOMS OF INFILTRATION.SAFETY AND FALL PRECAUTIONS IN PLACE.CALL LIGHT WITHIN REACH
--- NOTE | 2016-12-06 07:43 | NUR ---
NOTES SK=409/94;NO SIGNS AND SYMPTOMS OF HYPERTENSION;NO COMPLAIN OF PAIN OR DISCOMFORT;NO ACUTE DISTRESS.WILL RECHECK BP IN 30 MINS AND WILL CONTINUE TO MONITOR
[2016-12-06 08:05] LABS: BASOPHILS % (AUTO) 0.4 % (0.0-2.0); EOSINOPHILS # (AUTO) 0.2 K/uL (0.0-0.4); EOSINOPHILS % (AUTO) 4.5 % (0.0-4.0); HEMATOCRIT 25.7 % (36-48); HEMOGLOBIN 8.6 g/dL (12.0-16.0); LYMPHOCYTES # (AUTO) 0.8 K/uL (1.0-5.5); LYMPHOCYTES % (AUTO) 16.6 % (20.5-51.5); MEAN CORPUSCULAR HEMOGLOBIN 30 pg (27-31); MEAN CORPUSCULAR HGB CONC 33 % (32-36); MEAN CORPUSCULAR VOLUME 89 fL (79.0-98.0); MONOCYTES # (AUTO) 0.5 K/uL (0.0-1.0); MONOCYTES % (AUTO) 10.2 % (1.7-9.3); NEUTROPHILS # (AUTO) 3.5 K/uL (1.8-7.7); NEUTROPHILS % (AUTO) 68.3 % (40.0-70.0); PLATELET COUNT (AUTO) 246 K/uL (130-430); RED CELL DISTRIBUTION WIDTH 18.4 % (9.0-15.0)
[2016-12-06 08:18] LABS: ALANINE AMINOTRANSFERASE 28 U/L (12-78); ALBUMIN 3.2 g/dL (3.4-4.8); ANION GAP 10 (5-15); ASPARTATE AMINOTRANSFERASE 22 U/L (10-37); CALCIUM 8.5 mg/dL (8.4-11.0); CHLORIDE 105 mmol/L (98-107); CREATINE KINASE, TOTAL 36 U/L (26-192); CREATININE 4.01 mg/dL (0.55-1.30); GLUCOSE 130 mg/dL (70-99); PHOSPHORUS 4.2 mg/dL (2.7-4.5); POTASSIUM 4.6 mmol/L (3.5-5.1); SODIUM SERUM 138 mmol/L (136-145); TOTAL PROTEIN, SERUM 5.7 g/dL (6.4-8.3); UREA NITROGEN, BLOOD 50 mg/dL (8-21)
[2016-12-06] MEDS: POLYETHYLENE GLYCOL 3350, 17 GM/ POWD.PACK PO SCH (08:18)
[2016-12-06] MEDS: PHENAZOPYRIDINE HCL 100 MG TABLET PO SCH ×2 (08:18→20:38)
[2016-12-06] MEDS: DULoxetine HCL 30 MG CAPSULE.DR (CYMBALTA) PO SCH (08:18)
[2016-12-06] MEDS: PREGABALIN 75 MG CAPSULE (LYRICA) PO SCH (08:18)
[2016-12-06] MEDS: buPROPion HCL 150 MG XL TAB PO SCH ×2 (08:18→20:38)
--- NOTE | 2016-12-06 10:43 | NUR ---
NOTES PRESSURE TO IV SITE DETECTED BY IV PUMP;CHECKED AND ASSESSED SITE;NO SIGNS AND SYMPTOMS OF INFILTRATION;WITH SLIGHT RESISTANCE WHEN FLUSHED WITH NS;REMOVED IV CATHETER;RE-INSERTED TO RIGHT HAND;SUCCESSFUL WITH FIRST ATTEMPT;WITH GOOD BLOOD RETURN;PROCEDURE TOLERATED WELL
--- NOTE | 2016-12-06 11:40 | NUR ---
NOTES PATIENT'S NE=258/98;CHECKED AND ASSESSED PATIENT;NO SIGNS AND SYMPTOMS OF HYPERTENSION;NO ACUTE DISTRESS.WILL CONTINUE TO MONITOR
--- NOTE | 2016-12-06 11:47 | NUR ---
NOTES PAGED DR. MORGAN;AWAITING FOR CALL BACK
--- NOTE | 2016-12-06 11:52 | NUR ---
NOTES DR. MORGAN CALLED BACK;INFORMED REGARDING PATIENT'S EPISODES OF HIGH BLOOD PRESSURE;WITH ORDERS AND CARRIED OUT
[2016-12-06] MEDS ORDERED: cloNIDine HCL 0.1 MG TABLET PO PRN (12:00)
--- NOTE | 2016-12-06 12:46 | NUR ---
Nutrition F/U Admitting Diagnosis acute renal failure, UTI, hyperbilirubinemia, gallstones, dehydration Past Medical History chronic pain Pertinent Medications ceftriaxone sodium/dextrose IVF, Mg sulfate, K-Dur, mineral oil, miralax zofran, ativan, colace, morphine, NaCl IVF, synthroid, reglan Current Diet Order Regular, Renal standard (x4 days) Height (Feet) 5 feet Height (Inches) 8.00 inches Weight (Pounds) 158 pounds Weight (Calculated Kilograms) 71.521218 kilograms Patient Weight 71.668 kg Body Mass Index 24.02 kg/m2 (normal) [place]/Adjusted Body Weight IBW: 140 lb/64 kg; 113% IBW Estimated Needs [id number] kcal/day (BEE x 1-1.2 for maintenance) Grams of Protein per Day 43-58 gm/day (0.6-0.8 gm/kg for acute renal failure) Fluid Intake Goal Per MD (renal failure) Pertinent Labs Na 138 WNL (improved), BG 130 H (improving), BUN 50 H, CRE 4.01 H (improving), Hgb 8.6 L, Hct 25.7 L, Mg 2.0 WNL (improved), ALB 3.2 L, Tbili 1.0 WNL (improved) Other Subjective Data Physical Assessment: Pt seen sitting up in bed with at bedside. Pt is awake and alert. Bedscale reads 188 lb (unsure of accuracy). Pt appeared adequately nourished for height. GI Integrity: Per EMR, abdomen is soft and non-distended with active bowel sounds. Pt reports hx of constipation w/x1 BM every 5-6 days. Constipation has since been resolved since admission. BM x1 today, normal, soft stool. Pt denies n/v/d. PO Intakes: Pt reports great appetite. PO records average 98% x8 meals. No problems chewing or swallowing. Pt tolerating renal diet. Integumentary: Jason score 20, no skin issues noted Plans/Procedures: Pt is s/p blood transfusion. Per RN, pending GI consult for possible GI bleed. Current diet is appropriate, pt is tolerating, and meeting optimal nutritional needs. Pt declined nutrition education at this time. Problem, Etiology, Signs/Symptoms Altered nutrition-related lab values related to renal dysfunction as evidenced by abnormal BUN, creatinine and sodium lab values. Expected Outcomes or Goals * Monitor tolerance of diet, appetite, and PO intakes with goal of pt meeting at least 50% of estimated nutritional needs, labs trending WNL, normal GI function, skin integrity/weight maintenance Dietitian Recommendations * Recommend continue regular, renal standard diet per MD order Follow Up Low Risk: F/U in 7 days Addendum: 12/06/16 at [address] CORRECTIONS: Grams of Protein per Day 43-58 gm/day (0.6-0.8 gm/kg CBW for acute renal failure) RD reviewed/approved fall intern's note. VICKY, RD
--- NOTE | 2016-12-06 14:00 | NUR ---
NOTES CHECKED PATIENT;NEEDS ATTENDED TO
--- NOTE | 2016-12-06 16:40 | NUR ---
NOTES PATIENT ON BED AWAKE TALKING TO .NO ACUTE DISTRESS
[2016-12-06] MEDS: cefTRIAXone 1 GM in D5W 50 ML IV SCH (17:09)
--- NOTE | 2016-12-06 18:41 | NUR ---
CLOSING NOTES PATIENT ON BED AWAKE.BREATHING EVEN AND UNLABORED.NO ACUTE DISTRESS.IVF INFUSING WELL;NO SIGNS AND SYMPTOMS OF INFILTRATION.SAFETY AND FALL PRECAUTIONS IN PLACE.CALL LIGHT WITHIN REACH.WILL ENDORSE TO NEXT SHIFT ACCORDINGLY
--- NOTE | 2016-12-06 19:35 | NUR ---
INITIAL NOTE Patient resting on the bed. Respiration even and unlabored. No acute distress. C/O abdomen pain 2/10 and stated that no pain med needed at this time, will ask pain med when need it. Skin warm and dry to touch. IV intact to right hand, no redness, no swelling, no drainage. On NS at 80ml/hr, infusing well. Family at bedside. Discussed the safety issue, use call light when need help, verbally understanding. Call light within reached. Bed in low position, side rails up. Will continue to monitor.
[2016-12-06] MEDS: METOPROLOL TARTRATE 50 MG TABLET PO SCH (20:39)
--- NOTE | 2016-12-06 21:20 | NUR ---
ROUND Patient resting on the bed with eyes closed. Respiration even and unlabored. Safety measure maintained. Call light within reached. Bed in low position, side rails up, bed alarm on. Continue to monitor.
--- NOTE | 2016-12-06 23:33 | NUR ---
AMBULATED PATIENT TO BATHROOM Ambulated patient to bathroom. No acute distress. safety measure maintained. Call light within reached. continue to monitor.
--- NOTE | 2016-12-06 23:40 | NUR ---
MORPHINE GIVEN Patient c/o abdomen pain 03/17, Morphine 2mg IVP given as ordered. No acute distress. Safety measure maintained. Call light within reached. Bed in low position, bed alarm on, side rails up. Continue to monitor.
--- NOTE | 2016-12-07 00:03 | NUR ---
IV RE-INSERTION: IV accidentally out. Restarted on RFA. Successful after one attempts. Resumed current IVF of NS and regulated @ 80per hour. Procedure tolerated well. Will observe for any signs of infiltration.
[2016-12-07 00:14] VITALS: BP 134/66; PULSE 60; RESP 16; TEMP 96.6; O2SAT 94
--- NOTE | 2016-12-07 02:16 | NUR ---
ROUND Patient resting on the bed with eyes closed. Respiration even and unlabored. Call light within reached. Bed in low position, bed alarm on, side rails up. Continue to monitor.
--- NOTE | 2016-12-07 03:46 | NUR ---
ROUND Patient sleeping comfortable. No acute distress. Call light within reached. Safety measure maintained. Bed alarm on, bed in low position, side rials up. Continue to monitor.
[2016-12-07 04:25] VITALS: BP 155/87; PULSE 65; RESP 15; TEMP 97; O2SAT 94
--- NOTE | 2016-12-07 05:11 | NUR ---
ROUND Patient sleeping comfortable. No acute distress. Respiration even and unlabored. Call light within reached. Safety measure maintained. Bed alarm on, bed in low position, side rials up. Continue to monitor.
[2016-12-07] MEDS: LEVOTHYROXINE SODIUM 0.075 MG TABLET PO SCH (06:15)
[2016-12-07] MEDS: MINERAL OIL 30 ML UDC PO SCH ×3 (06:15→17:27)
--- NOTE | 2016-12-07 06:43 | NUR ---
CLOSING NOTE Patient resting on the bed comfortable. No c/o pain at this time. No acute distress. Respiration even and unlabored. IV intact, no redness, no swelling, no drainage. On NS at 80ml/hr., infusing well. VS stable. All needs met. Hourly rounding during shift. Safety measure maintained. Call light within reached. Bed in low position, side rails up. Will endorse to morning shift nurse.
[2016-12-07] MEDS: NACL 0.9% 1,000 ML IV SCH ×2 (07:33→12:18)
[2016-12-07 08:03] VITALS: BP 141/84; PULSE 68; RESP 17; TEMP 98.2; O2SAT 95
[2016-12-07] MEDS: METOPROLOL TARTRATE 50 MG TABLET PO SCH ×2 (08:10→20:54)
[2016-12-07] MEDS: PREGABALIN 75 MG CAPSULE (LYRICA) PO SCH (08:10)
[2016-12-07] MEDS: buPROPion HCL 150 MG XL TAB PO SCH ×2 (08:10→20:53)
[2016-12-07] MEDS: DULoxetine HCL 30 MG CAPSULE.DR (CYMBALTA) PO SCH (08:10)
[2016-12-07] MEDS: PHENAZOPYRIDINE HCL 100 MG TABLET PO SCH ×2 (08:10→20:53)
[2016-12-07] MEDS: MORPHINE 2 MG/ML INJ. SYRINGE IVP PRN ×2 (08:11→18:17)
[2016-12-07] MEDS: POLYETHYLENE GLYCOL 3350, 17 GM/ POWD.PACK PO SCH (08:11)
--- NOTE | 2016-12-07 10:38 | NUR ---
NOTES PATIENT AMBULATED TO THE RESTROOM WITHOUT ASSIST;WITH STEADY GAIT;TOLERATED ACTIVITY WELL
[2016-12-07 10:42] LABS: ANION GAP 7 (5-15); CALCIUM 8.7 mg/dL (8.4-11.0); CHLORIDE 106 mmol/L (98-107); CREATININE 3.03 mg/dL (0.55-1.30); GLUCOSE 101 mg/dL (70-99); POTASSIUM 4.7 mmol/L (3.5-5.1); SODIUM SERUM 139 mmol/L (136-145); UREA NITROGEN, BLOOD 44 mg/dL (8-21)
[2016-12-07 12:13] LABS: CREATININE, URINE 21.2 mg/dL (Not Estab.); MICROALBUMIN URINE RANDOM 7.7 ug/mL (Not Estab.)
[2016-12-07] MEDS: ONDANSETRON HCL 4 MG/2 ML VIAL IVP PRN (12:27)
[2016-12-07 12:31] VITALS: BP 140/79; PULSE 55; RESP 16; TEMP 97.7; O2SAT 95
--- NOTE | 2016-12-07 12:52 | NUR ---
NOTES PATIENT'S LUNCH TRAY KEPT ON HOLD DUE TO ULTRASOUND OF ABDOMEN;NO ACUTE DISTRESS
[2016-12-07] MEDS: cefTRIAXone 1 GM in D5W 50 ML IV SCH (15:42)
[2016-12-07 16:11] VITALS: BP 135/72; PULSE 58; RESP 18; TEMP 98; O2SAT 97
[2016-12-07 16:19] LABS: MICROALBUMIN/CREAT RATIO, UR 36.3 mg/g creat (0.0-30.0)
--- NOTE | 2016-12-07 16:37 | NUR ---
NOTES CHECKED PATIENT;NEEDS ATTENDED TO
[2016-12-07 18:06] LABS: ANTI NUCLEAR AB WITH REFLEX Negative (Negative)
--- NOTE | 2016-12-07 18:41 | NUR ---
CLOSING NOTES PATIENT ON BED AWAKE STILL EATING.BREATHING EVEN AND UNLABORED.NO ACUTE DISTRESS.IVF INFUSING WELL;NO SIGNS AND SYMPTOMS OF INFILTRATION.SAFETY AND FALL PRECAUTIONS IN PLACE.CALL LIGHT WITHIN REACH.WILL ENDORSE TO NEXT SHIFT ACCORDINGLY
--- NOTE | 2016-12-07 20:03 | NUR ---
Opening Note Report received from day shift RN. Patient is in stable condition. IV is to the RFA 22g running NS @80ml/hr. Colonoscopy scheduled for tomorrow. Patient is almost done the bowel prep. Call light is within reach. Instructed patient to use it whenever in need of assistance.
--- NOTE | 2016-12-07 20:10 | NUR ---
Opening Note Report received from [place] day shift RN. Patient is currently resting in bed. No complaints at the moment. Call light is within reach instructed to use it whenever in need of assistance. IV is on the right arm running NS@80ml/hr.
[2016-12-07 20:12] VITALS: BP 114/67; PULSE 60; RESP 18; TEMP 98.4; O2SAT 95
--- NOTE | 2016-12-07 22:08 | NUR ---
Rounds Patient is currently in stable condition. No complaints of pain at the moment. Call light is within reach.
[2016-12-08] VITALS (8 sets, daily range): BP systolic 114–154; BP diastolic 66–88; PULSE 50–66; RESP 17–20; TEMP 97.2–98.4; O2SAT 94–98
--- NOTE | 2016-12-08 00:12 | NUR ---
Rounds Patient is resting in bed. No complaints at the moment. Call light is within reach.
[2016-12-08] MEDS: MORPHINE 2 MG/ML INJ. SYRINGE IVP PRN ×4 (00:22→18:41)
[2016-12-08] MEDS: NACL 0.9% 1,000 ML IV SCH (00:23)
--- NOTE | 2016-12-08 02:20 | NUR ---
Rounds Patient is sleeping in bed. Condition is stable. Call light is within reach.
--- NOTE | 2016-12-08 04:20 | NUR ---
Rounds Patient is resting in bed. Call light is within reach.
[2016-12-08] MEDS: MINERAL OIL 30 ML UDC PO SCH ×4 (06:45→18:40)
[2016-12-08] MEDS: LEVOTHYROXINE SODIUM 0.075 MG TABLET PO SCH (06:45)
--- NOTE | 2016-12-08 07:01 | NUR ---
Closing Note Patient is currently sleeping in bed. No complaints at the moment. Call light is within reach. Will give report to the oncoming nurse.
[2016-12-08 07:32] LABS: ANION GAP 4 (5-15); CALCIUM 8.3 mg/dL (8.4-11.0); CHLORIDE 107 mmol/L (98-107); GLUCOSE 89 mg/dL (70-99); SODIUM SERUM 138 mmol/L (136-145); UREA NITROGEN, BLOOD 42 mg/dL (8-21)
[2016-12-08 07:36] LABS: BASOPHILS % (AUTO) 0.6 % (0.0-2.0); EOSINOPHILS # (AUTO) 0.3 K/uL (0.0-0.4); EOSINOPHILS % (AUTO) 4.8 % (0.0-4.0); HEMATOCRIT 22.3 % (36-48); LYMPHOCYTES # (AUTO) 1.3 K/uL (1.0-5.5); LYMPHOCYTES % (AUTO) 23.4 % (20.5-51.5); MEAN CORPUSCULAR HEMOGLOBIN 31 pg (27-31); MEAN CORPUSCULAR HGB CONC 34 % (32-36); MEAN CORPUSCULAR VOLUME 91 fL (79.0-98.0); MONOCYTES # (AUTO) 0.7 K/uL (0.0-1.0); MONOCYTES % (AUTO) 12.3 % (1.7-9.3); NEUTROPHILS # (AUTO) 3.1 K/uL (1.8-7.7); NEUTROPHILS % (AUTO) 58.9 % (40.0-70.0); PLATELET COUNT (AUTO) 201 K/uL (130-430); RED BLOOD CELL COUNT(AUTO) 2.47 MIL/uL (4.2-6.2); RED CELL DISTRIBUTION WIDTH 19.3 % (9.0-15.0); WHITE BLOOD COUNT (AUTO) 5.4 K/uL (4.8-10.8)
[2016-12-08 07:52] LABS: HEMOGLOBIN 7.6 g/dL (12.0-16.0)
--- NOTE | 2016-12-08 08:14 | NUR ---
OPENING NOTE: RECEIVED REPORT FROM NIGHT NURSEUMU RN. PATIENT IS RESTING COMFORTABLY IN BED. NO S/S OF DISTRESS OR SOB. PATIENT IS ALERT AND ORIENTED, ABLE TO EXPRESS NEEDS, AND ASK FOR ASSISTANCE. VITAL SIGNS WNL, ASSESSMENT COMPLETE. IV PATENT AND INFUSING. CALL LIGHT IN REACH, BED IN LOWEST POSITION, AND WILL CONTINUE TO MONITOR.
[2016-12-08] MEDS: buPROPion HCL 150 MG XL TAB PO SCH ×2 (08:46→22:42)
[2016-12-08] MEDS: POLYETHYLENE GLYCOL 3350, 17 GM/ POWD.PACK PO SCH (08:46)
[2016-12-08] MEDS: PREGABALIN 75 MG CAPSULE (LYRICA) PO SCH (08:46)
[2016-12-08] MEDS: PHENAZOPYRIDINE HCL 100 MG TABLET PO SCH ×2 (08:47→22:42)
[2016-12-08] MEDS: METOPROLOL TARTRATE 50 MG TABLET PO SCH ×2 (08:47→22:42)
[2016-12-08] MEDS: DULoxetine HCL 30 MG CAPSULE.DR (CYMBALTA) PO SCH (08:47)
[2016-12-08] MEDS ORDERED: DOCUSATE SODIUM 100 MG CAPSULE PO ONE (14:00)
[2016-12-08] MEDS ORDERED: GOLYTELY / COLYTE SOLUTION 4 LITERS PO ONE (16:00)
--- NOTE | 2016-12-08 18:30 | NUR ---
CLOSING NOTE: PATIENT IS RESTING COMFORTABLY IN BED. NO S/S OF DISTRESS OR SOB. PATIENT IS ALERT AND ORIENTED, ABLE TO EXPRESS NEEDS, AND ASK FOR ASSISTANCE. CALL LIGHT IN REACH, BED IN LOWEST POSITION, AND WILL GIVE REPORT TO NIGHT NURSE.
--- NOTE | 2016-12-08 20:03 | NUR ---
Opening Note Report received from day shift RN. Patient is in stable condition. Call light is within reach. Instructed patient to use it whenever in need of assistance. Colonoscopy is scheduled for tomorrow. Patient is almost done with bowel prep. IV is to the RFA 22g running NS@80ml/hr.
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
--- NOTE | 2016-12-09 00:02 | NUR ---
Rounds Patient is resting in bed no complaints at the moment. Call light is within reach. Instructed patient to use it whenever in need of assistance.
[2016-12-09] MEDS: MINERAL OIL 30 ML UDC PO SCH ×5 (00:29→23:11)
--- NOTE | 2016-12-09 02:10 | NUR ---
Rounds Patient is currently resting in bed. Call light is within reach.
[2016-12-09] MEDS: MORPHINE 2 MG/ML INJ. SYRINGE IVP PRN ×4 (03:39→21:01)
--- NOTE | 2016-12-09 04:11 | NUR ---
Rounds Patient is resting in bed. Call light is within reach.
[2016-12-09 04:31] VITALS: BP 146/89; PULSE 58; RESP 18; TEMP 97; O2SAT 97
[2016-12-09] MEDS: LEVOTHYROXINE SODIUM 0.075 MG TABLET PO SCH (06:03)
--- NOTE | 2016-12-09 06:41 | NUR ---
Closing Note Patient is in stable condition. Call light is within reach. No signs of distress noted. Will give report to the oncoming nurse.
[2016-12-09 06:50] LABS: BASOPHILS % (AUTO) 0.5 % (0.0-2.0); EOSINOPHILS # (AUTO) 0.3 K/uL (0.0-0.4); HEMATOCRIT 24.5 % (36-48); HEMOGLOBIN 8.2 g/dL (12.0-16.0); LYMPHOCYTES # (AUTO) 1.1 K/uL (1.0-5.5); LYMPHOCYTES % (AUTO) 22.1 % (20.5-51.5); MEAN CORPUSCULAR HEMOGLOBIN 30 pg (27-31); MEAN CORPUSCULAR HGB CONC 33 % (32-36); MEAN CORPUSCULAR VOLUME 91 fL (79.0-98.0); MONOCYTES # (AUTO) 0.6 K/uL (0.0-1.0); MONOCYTES % (AUTO) 11.1 % (1.7-9.3); NEUTROPHILS # (AUTO) 3.1 K/uL (1.8-7.7); NEUTROPHILS % (AUTO) 61.3 % (40.0-70.0); PLATELET COUNT (AUTO) 226 K/uL (130-430); RED CELL DISTRIBUTION WIDTH 18.9 % (9.0-15.0); WHITE BLOOD COUNT (AUTO) 5.1 K/uL (4.8-10.8)
[2016-12-09 06:53] LABS: ANION GAP 5 (5-15); CALCIUM 8.7 mg/dL (8.4-11.0); CHLORIDE 107 mmol/L (98-107); CREATININE 1.88 mg/dL (0.55-1.30); GLUCOSE 105 mg/dL (70-99); PHOSPHORUS 3.8 mg/dL (2.7-4.5); POTASSIUM 4.7 mmol/L (3.5-5.1); SODIUM SERUM 141 mmol/L (136-145); UREA NITROGEN, BLOOD 31 mg/dL (8-21)
[2016-12-09 08:00] VITALS: BP 142/78; PULSE 60; RESP 18; TEMP 98.2; O2SAT 99
--- NOTE | 2016-12-09 08:00 | NUR ---
OPENING NOTE: RECEIVED REPORT FROM NIGHT NURSE. PATIENT IS RESTING COMFORTABLY IN BED. NO S/S OF DISTRESS OR SOB. PATIENT IS ALERT AND ORIENTED, ABLE TO EXPRESS NEEDS, AND ASK FOR ASSISTANCE. VITAL SIGNS WNL, ASSESSMENT COMPLETE. CALL LIGHT IN REACH, BED IN LOWEST POSITION, AND WILL CONTINUE TO MONITOR.
[2016-12-09] MEDS: NACL 0.9% 1,000 ML IV SCH ×3 (09:33→23:11)
[2016-12-09] MEDS: buPROPion HCL 150 MG XL TAB PO SCH ×2 (09:37→21:09)
[2016-12-09] MEDS: DULoxetine HCL 30 MG CAPSULE.DR (CYMBALTA) PO SCH (09:37)
[2016-12-09] MEDS: POLYETHYLENE GLYCOL 3350, 17 GM/ POWD.PACK PO SCH (09:37)
[2016-12-09] MEDS: PHENAZOPYRIDINE HCL 100 MG TABLET PO SCH ×2 (09:37→21:09)
[2016-12-09] MEDS: PREGABALIN 75 MG CAPSULE (LYRICA) PO SCH (09:37)
[2016-12-09] MEDS: METOPROLOL TARTRATE 50 MG TABLET PO SCH ×2 (09:37→21:09)
[2016-12-09 12:00] VITALS: BP 152/86; PULSE 68; RESP 17; TEMP 98.8
--- NOTE | 2016-12-09 14:00 | NUR ---
NOTE: PATIENT IS RESTING COMFORTABLY IN BED. NO S/S OF DISTRESS OR SOB. PATIENT IS ALERT AND ORIENTED. CALL LIGHT IN REACH, BED IN LOWEST POSITION, AND WILL CONTINUE TO MONITOR.
[2016-12-09 16:00] VITALS: BP 117/66; PULSE 67; RESP 17; TEMP 98.6; O2SAT 95
--- NOTE | 2016-12-09 16:00 | NUR ---
NOTE: PATIENT IS RESTING COMFORTABLY IN BED. NO S/S OF DISTRESS OR SOB. PATIENT IS ALERT AND ORIENTED. AT BEDSIDE. CALL LIGHT IN REACH, BED IN LOWEST POSITION, AND WILL CONTINUE TO MONITOR.
[2016-12-09] MEDS ORDERED: MAGNESIUM CITRATE 300 ML ORAL SOLUTION PO ONE (19:00)
--- NOTE | 2016-12-09 19:48 | NUR ---
OPENING NOTE Pt. and bedside report received from day shift nurse. Pt. is resting quietly in bed with no s/s of acute distress. Plan of care and safety measures discussed with pt. Educated pt. on how to use call light for needs. Will continue to monitor.
[2016-12-09 21:07] VITALS: BP 125/69; PULSE 71; RESP 18; TEMP 98.4; O2SAT 95
--- NOTE | 2016-12-09 21:17 | NUR ---
MAG SULFATE Late entry due to pt. care. Mag sulfate IV administered as ordered PRN for mag level of 1.5. See EMAR. Educated pt. regarding medication and s/e. Pt. verbalized understanding. Encouraged pt. to use call light for needs. Will continue to monitor.
--- NOTE | 2016-12-09 23:30 | NUR ---
REQUESTED JELLO Pt. requested jello as snack.
[2016-12-10 00:05] VITALS: BP 129/73; PULSE 56; RESP 18; TEMP 97.9; O2SAT 95
--- NOTE | 2016-12-10 00:23 | NUR ---
ROUNDS Pt. is resting quietly in bed with no s/s of acute distress. Safety measures in place. Call light to right hand. Will continue to monitor.
--- NOTE | 2016-12-10 00:31 | NUR ---
BOWEL MOVEMENT Pt. had (1) bowel movement. Pt. denies any needs at this time. Encouraged pt. to use call light for needs. Safety measures in place. Will continue to monitor.
--- NOTE | 2016-12-10 00:47 | NUR ---
EDUCATED PT. ON STRICT I/O AND HAT PLACED IN TOILET Educated pt. that hat was placed in toilet to monitor her output. Pt. verbalized understanding with no needs at this time. Safety measures in place. Will continue to monitor.
--- NOTE | 2016-12-10 01:39 | NUR ---
ROUNDS Pt. is resting quietly in bed with no s/s of acute distress. Safety measures in place. Call light to right hand. Will continue to monitor.
--- NOTE | 2016-12-10 02:15 | NUR ---
BATHROOM Pt. able to ambulate to bathroom with steady gait, denies any dizziness. 500 mls of yellow urine noted and 1 bowel movement. Encouraged pt. to use call light for any needs. Safety measures in place. Pt. requested warm blankets, denies any other needs at this time. Will continue to monitor.
--- NOTE | 2016-12-10 03:46 | NUR ---
ROUNDS Pt. is resting quietly in bed with no s/s of acute distress. Safety measures in place. Call light to right hand. Will continue to monitor.
[2016-12-10 04:19] VITALS: BP 133/69; PULSE 57; RESP 18; TEMP 96.6; O2SAT 95
--- NOTE | 2016-12-10 06:36 | NUR ---
TAP WATER ENEMA Late entry due to pt. care. Tap water was done for bowel prep until clear with assistance of SUE Oliver. Pt. tolerated well.
--- NOTE | 2016-12-10 06:37 | NUR ---
LAB AT BEDSIDE Monserrat from lab at bedside drawing pt.'s AM labs.
--- NOTE | 2016-12-10 06:52 | NUR ---
CLOSING NOTES All needs met throughout shift. IV fluids infusing as ordered. Safety measures in place. Encouraged pt. to use call light for any needs. Will endorse care to oncoming day shift nurse.
[2016-12-10] MEDS: LEVOTHYROXINE SODIUM 0.075 MG TABLET PO SCH (07:00)
[2016-12-10 07:29] LABS: BASOPHILS % (AUTO) 0.6 % (0.0-2.0); EOSINOPHILS # (AUTO) 0.2 K/uL (0.0-0.4); EOSINOPHILS % (AUTO) 4.7 % (0.0-4.0); HEMATOCRIT 26.6 % (36-48); HEMOGLOBIN 8.8 g/dL (12.0-16.0); LYMPHOCYTES # (AUTO) 1.3 K/uL (1.0-5.5); LYMPHOCYTES % (AUTO) 26.8 % (20.5-51.5); MEAN CORPUSCULAR HEMOGLOBIN 31 pg (27-31); MEAN CORPUSCULAR HGB CONC 33 % (32-36); MEAN CORPUSCULAR VOLUME 93 fL (79.0-98.0); MONOCYTES # (AUTO) 0.5 K/uL (0.0-1.0); NEUTROPHILS # (AUTO) 2.7 K/uL (1.8-7.7); NEUTROPHILS % (AUTO) 56.9 % (40.0-70.0); PLATELET COUNT (AUTO) 264 K/uL (130-430); RED BLOOD CELL COUNT(AUTO) 2.86 MIL/uL (4.2-6.2); RED CELL DISTRIBUTION WIDTH 19.5 % (9.0-15.0); WHITE BLOOD COUNT (AUTO) 4.7 K/uL (4.8-10.8)
[2016-12-10 07:54] LABS: ANION GAP 5 (5-15); CALCIUM 8.8 mg/dL (8.4-11.0); CHLORIDE 105 mmol/L (98-107); CREATININE 1.49 mg/dL (0.55-1.30); GLUCOSE 101 mg/dL (70-99); SODIUM SERUM 139 mmol/L (136-145); UREA NITROGEN, BLOOD 19 mg/dL (8-21)
[2016-12-10 08:26] VITALS: BP 135/73; PULSE 62; RESP 17; TEMP 97.7; O2SAT 97
[2016-12-10] MEDS ORDERED: SIMETHICONE 40 MG/0.6 ML ML ONE (08:37)
[2016-12-10] MEDS ORDERED: MIDAZOLAM HCL 5 MG/5 ML VIAL ONE (08:38)
[2016-12-10] MEDS ORDERED: MEPERIDINE HCL/PF 100 MG/ML AMP ONE (08:38)
[2016-12-10] MEDS: METOPROLOL TARTRATE 50 MG TABLET PO SCH (09:00)
[2016-12-10] MEDS: PREGABALIN 75 MG CAPSULE (LYRICA) PO SCH (09:00)
[2016-12-10] MEDS: POLYETHYLENE GLYCOL 3350, 17 GM/ POWD.PACK PO SCH (09:00)
[2016-12-10] MEDS: PHENAZOPYRIDINE HCL 100 MG TABLET PO SCH (09:00)
[2016-12-10] MEDS: buPROPion HCL 150 MG XL TAB PO SCH (09:00)
[2016-12-10] MEDS: DULoxetine HCL 30 MG CAPSULE.DR (CYMBALTA) PO SCH (09:00)
--- NOTE | 2016-12-10 09:00 | NUR ---
PATIENT TAKEN TO GI
--- NOTE | 2016-12-10 11:00 | NUR ---
NOTE: PATIENT BACK FROM GI. PATIENT IN STABLE CONDITION. NO S/S OF DISTRESS OR SOB. PATIENT IS ALERT AND ORIENTED, ABLE TO EXPRESS NEEDS, AND ASK FOR ASSISTANCE. CALL LIGHT IN REACH, BED IN LOWEST POSITION, AND WILL CONTINUE TO MONITOR.
--- NOTE | 2016-12-10 11:19 | NUR ---
CALLED ATTENDING MD DR MORGAN, RE: DISCHARGE ORDER. SPOKE TO JAYA
[2016-12-10] MEDS ORDERED: OMEP20TA20 PO (11:41)
[2016-12-10 12:19] VITALS: BP 135/73; PULSE 62; RESP 17; TEMP 97.7; O2SAT 97
[2016-12-11 15:08] LABS: ATYPICAL pANCA <1:20 titer (Neg:<1:20); CYTOPLASMIC (C-ANCA) <1:20 titer (Neg:<1:20); CYTOPLASMIC (P-ANCA) <1:20 titer (Neg:<1:20)
--- NOTE | 2016-12-15 13:19 | NUR ---
Discharge Follow Up Phone Call DIESEL TECHNICIAN phoned the number listed for patient, , on 12/13/16 and left a voicemail message. DIESEL TECHNICIAN phoned again on 12/15/16 with the same result. DIESEL TECHNICIAN phoned patient's , Terry, . He stated that patient was doing fine. They understand and are following the discharge instructions and will follow up with patient's PCP when they return home. They filled patient's prescriptions. Patient thought she had another infection this week but was told she did not.
== END 2016-12-10 13:30 | disposition home or self-care (01) | DRG 377 ==
LOC: SED 09:51 → SMU 13:55
PROVIDERS: ADMIT General Practice; ATTEND General Practice
PROC: 0DJD8ZZ Inspection of Lower Intestinal Tract, Via Natural or Artificial Opening Endoscopic (ICD-10-PCS; 2016-12-10)
PROC: 30233N1 Transfusion of Nonautologous Red Blood Cells into Peripheral Vein, Percutaneous Approach (ICD-10-PCS; 2016-12-10)
PROC: 0DB98ZX Excision of Duodenum, Via Natural or Artificial Opening Endoscopic, Diagnostic (ICD-10-PCS; principal; 2016-12-10 09:00)
PROC: 0DB68ZX Excision of Stomach, Via Natural or Artificial Opening Endoscopic, Diagnostic (ICD-10-PCS; 2016-12-10 09:00)
DX: K92.2 Gastrointestinal hemorrhage, unspecified (principal); N17.0 Acute kidney failure with tubular necrosis; N39.0 Urinary tract infection, site not specified; E87.1 Hypo-osmolality and hyponatremia; E44.0 Moderate protein-calorie malnutrition; M62.82 Rhabdomyolysis; F33.9 Major depressive disorder, recurrent, unspecified; E87.6 Hypokalemia; E88.09 Other disorders of plasma-protein metabolism, not elsewhere classified; D64.9 Anemia, unspecified; N18.3 Chronic kidney disease, stage 3 (moderate); I12.9 Hypertensive chronic kidney disease with stage 1 through stage 4 chronic kidney disease, or unspecified chronic kidney disease; K59.09 Other constipation; K63.89 Other specified diseases of intestine; K64.8 Other hemorrhoids; K29.70 Gastritis, unspecified, without bleeding; G89.29 Other chronic pain; M79.2 Neuralgia and neuritis, unspecified; Z87.440 Personal history of urinary (tract) infections; Z87.891 Personal history of nicotine dependence; Z90.710 Acquired absence of both cervix and uterus; Z88.1 Allergy status to other antibiotic agents; Z88.2 Allergy status to sulfonamides; Z79.899 Other long term (current) drug therapy
CPT/HCPCS: 36415; 43239; 45378; 71010; 76700-TC; 76770; 80048; 80053; 81000-TC; 82043; 82272; 82435-TC; 82550-TC; 82570; 83540-TC; 83550-TC; 83605; 83690-TC; 83735-TC; 83970; 84100-TC; 84302-TC; 84311; 84550-TC; 85025; 85610-TC; 85651-TC; 86038; 86256; 86870; 86886; 86900; 86901; 86920; 87040-TC; 87081; 87086; 88305; 88312; 88313; 93005; 96365; 99285; J0696; J1644; J2175; J2250; J2270; J2405; J2543; J2765; J3475; J7030; J7040; J7060; J7120; P9021